=== PATIENT | male | born 1930 | race Caucasian/White ===

== ENCOUNTER 2017-05-11 15:48 | Emergency (ER) | payer MEDICARE, BC ==
[~2017-05-11 15:48] MED LIST: Iopamidol 370 76% 100 ML VIAL ONE
[2017-05-11 16:39] LABS: #Basophils 0.1 thou/uL (0.0-0.2); #Eosinphils 0.2 thou/uL (0.0-0.7); #Lymphocytes 0.9 thou/uL (1.20-3.40); #Monocytes 0.4 thou/uL (0.11-0.59); #Neutrophils 3.7 thou/uL (1.40-6.50); %Basophils 2.2 % (0.0-1.0); %Eosinophils 2.9 % (0.0-10.0); %Lymphocytes 16.8 % (21.0-51.0); %Monocytes 7.3 % (0.0-10.0); %Neutrophils 70.9 % (42.0-75.0); Hemoglobin 12.8 g/dL (14.0-18.0); Mean Corpuscular HGB CONC 35.4 g/dL (32.0-36.0); Mean Corpuscular Hemoglobin 32.6 pg (27.0-31.0); Mean Platelet Volume 7.5 fL (7.4-10.4); Platelet Count 138 thou/uL (130-400); RBC Distribution Width 12.4 % (11.5-14.5); Red Blood Cell (RBC) Count 3.92 mill/uL (4.70-6.10); White Blood Cell (WBC) Count 5.3 thou/uL (4.8-10.8)
[2017-05-11 16:44] LABS: INR-International Normal Ratio 1.1; Prothrombin Time 13.8 SEC (12.0-14.7)
[2017-05-11 16:53] LABS: ALT (SGPT) 14 U/L (8-55); AST (SGOT) 19 U/L (5-34); Albumin 3.9 g/dL (3.4-4.8); Alkaline Phosphatase 65 U/L (40-150); Anion Gap 14 mmol/L (10-20); BUN (Urea Nitrogen) 18 mg/dL (8.4-25.7); Bilirubin, Total 0.8 mg/dL (0.2-1.2); Calc. Creatinine Clearance 0 mL/min (70-130); Calcium 9.2 mg/dL (7.8-10.44); Carbon Dioxide 23 mmol/L (23-31); Chloride 107 mmol/L (98-107); Estimated GFR-MDRD 69; Globulin 2.6 g/dL (2.4-3.5); Glucose 111 mg/dL (83-110); Potassium 3.9 mmol/L (3.5-5.1); Protein, Total 6.5 g/dL (5.8-8.1); Sodium 140 mmol/L (136-145)
--- NOTE | 2017-05-11 19:08 | CT ---
CT PELVIS WITH CONTRAST: Indication: Fall with bleeding, pain. FINDINGS: No evidence of pelvic fracture. No abnormal diastasis of the symphysis pubis or sacroiliac joints. Th ere is a rounded acute soft tissue hematoma of the right gluteal soft tissues with an approximately d iameter of 7.3 cm with surrounding subcutaneous edema. This hematoma is situated just superficial to the right gluteus musculature. There is no intrapelvic hemoperitoneum. There is degenerative change a t the partially imaged lower lumbar spine. Incidental note of bilateral patch[place] fat containing ing uinal rings. Post-surgical change of the pelvis noted. IMPRESSION: 1. Prominent sized right posterior soft tissue hematoma of the gluteal region. 2. No displaced pelvic fracture. POS: C
== END 2017-05-11 18:12 | disposition home or self-care (01) ==
LOC: SCSER 15:48
DX: S30.0XXA Contusion of lower back and pelvis, initial encounter (principal); E78.5 Hyperlipidemia, unspecified; K21.9 Gastro-esophageal reflux disease without esophagitis; I10 Essential (primary) hypertension; Z79.899 Other long term (current) drug therapy; Z79.01 Long term (current) use of anticoagulants; W19.XXXA Unspecified fall, initial encounter; Y93.02 Activity, running
CPT/HCPCS: 36415; 72193; 80053; 85025; 85610